=== PATIENT | female | born 1960 | race Caucasian/White ===

== ENCOUNTER → 2018-05-27 | Outpatient (REF) | LOC: ZLAB.WCH 17:49 | DX: Z01.89 Encounter for other specified special examinations (principal) ==

== ENCOUNTER → 2018-11-20 | Outpatient (REF) | LOC: ZLAB.WCH 08:40 | DX: Z01.89 Encounter for other specified special examinations (principal) ==

== ENCOUNTER 2022-07-15 13:56 | Emergency (ER) | payer SELFPAY ==
[~2022-07-15] VITALS: Ht 165.1 cm; Wt 68.2 kg
[2022-07-15 14:32] VITALS: TEMP 98.1
[2022-07-15 15:25] VITALS: BP 130/80; PULSE 80
== END 2022-07-15 14:50 | disposition home or self-care (01) ==
LOC: COL.ER 13:56
DX: S93.601A Unspecified sprain of right foot, initial encounter (principal); S93.401A Sprain of unspecified ligament of right ankle, initial encounter; X58.XXXA Exposure to other specified factors, initial encounter; Y92.59 Other trade areas as the place of occurrence of the external cause; Y99.0 Civilian activity done for income or pay

== ENCOUNTER 2022-08-31 10:46 | Outpatient (RCR) | payer OTHER | END 2022-09-10 | disposition home or self-care (01) | LOC: WSOH | DX: M25.551 Pain in right hip (principal); M25.571 Pain in right ankle and joints of right foot; I10 Essential (primary) hypertension; E11.9 Type 2 diabetes mellitus without complications; Z86.73 Personal history of transient ischemic attack (TIA), and cerebral infarction without residual deficits ==